=== PATIENT | female | born 1975 | race Caucasian/White ===

== ENCOUNTER → 2016-08-28 | Outpatient (CLI) | payer BC ==
[~2016-08-28] MED LIST: AMLO5TAB2 PO; BUPIVACAINE 0.25% (2.5mg/ml) INJ 30ml SDV ONE; DOCU-168 PO; FLUO40CA40 PO; GADOBUTROL 10mMol/10ml INJECTION IV ONE; HYDR25TA PO; IOTHALAMATE MEGLUMINE 60% (600mg/ml) 30ml INJ IV ONE; LEVO25TA4 PO; LIDOCAINE 1% 30ml (STERI-PAK) ONE; NAPR500T3 PO; NORMAL SALINE 50 ML IV ONE; ONDA4TAB4 PO; OXYC-46 PO; SULF1TAB42 PO; TRIAMCINOLONE 40mg/ml INJECTION 1ml VIAL INJ ONE; [UNRECOGNIZED DRUG - CODE] PO
--- NOTE | 2016-08-28 11:09 | DI ---
INDICATION: ITS.REASON: BILATERAL KNEE PAIN; LABRAL REPAIR Procedure:INJECTION/DRN KNEE LT W/FLUORO LEFT KNEE INJECTION: After discussing the details of the procedure, including the risks, the patient wished to proceed. Informed consent was obtained. A preprocedural timeout was performed to confirm the correct patient and procedure. Utilizing sterile technique, local Xylocaine anesthesia, and fluoroscopic guidance a 22-gauge infiltrating needle is directed into the left knee. A small amount of x-ray contrast was injected to confirm proper position of the needle tip. A fluoroscopic image was then taken and archived. A combination of 4 cc 1% lidocaine, 4 cc 0.25% bupivacaine, and 80 mg Kenalog were slowly instilled within the joint of the left knee. The needle was removed. The patient tolerated the procedure well. Following this, the patient was prepped for the same procedure on the right knee. IMPRESSION: Technically successful intra-articular left knee injection for therapeutic purposes. Fluoroscopy dose: 2.83 mGy (Cumulative air kerma) Charles Powell RPA/PAT performed this under my personal supervision. .
--- NOTE | 2016-08-28 11:13 | DI ---
INDICATION: ITS.REASON: BILATERAL KNEE PAIN; LABRAL REPAIR Procedure:INJECTION/DRN KNEE RT W/FLUORO RIGHT KNEE INJECTION: After discussing the details of the procedure, including the risks, the patient wished to proceed. Informed consent was obtained. A preprocedural timeout was performed to confirm the correct patient and procedure. Utilizing sterile technique, local Xylocaine anesthesia, and fluoroscopic guidance a 22-gauge infiltrating needle is directed into the right knee. A small amount of x-ray contrast was injected to confirm proper position of the needle tip. A fluoroscopic image was then taken and archived. A combination of 4 cc 1% lidocaine, 4 cc 0.25% bupivacaine, and 80 mg Kenalog were slowly instilled within the joint of the right knee. The needle was removed. The patient tolerated the procedure well. Following this, the patient was prepped for her right hip arthrogram. IMPRESSION: Technically successful right intra-articular knee joint injection for therapeutic purposes. Fluoroscopy dose: 0.73 (Cumulative air kerma) Charles Powell RPA/PAT performed this under my personal supervision. .
--- NOTE | 2016-08-28 11:44 | DI ---
Indication: ITS.REASON: RIGHT HIP PAIN S/P RIGHT HIP DIAGNOSTIC ARTHROSCOPY AND SYNOVECTOMY PROCEDURE: MRI HIP RIGHT W/ CONTRAST: Encounter: Initial Comparison: None Technique: Multiplanar multisequence MR imaging of the right hip was performed after the administration of intra-articular contrast. The arthrogram injection is described in a separate procedural report. Findings: The hamstring origins appear normal. Bone marrow signal intensity is normal. No acute fracture. Ligamentum teres is intact. Contrast does not communicate with the iliopsoas bursa. Muscular signal intensity is normal. There is irregularity of the anterosuperior labrum at 2:00 best seen on sagittal images 10 and 11 and axial proton density image #19. No additional labral tears appreciated there is a small osseous excrescence on the anterior femoral head at the head neck junction best seen on sagittal image #13 and axial oblique image #15. No fluid in the greater trochanteric bursa. There is some slight increased T2 signal intensity at the greater trochanteric insertions of the gluteus medius and minimus. Impression: 1. Subtle evidence for a small labral tear at the 2:00 position. 2. 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 3. 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 .
--- NOTE | 2016-08-28 11:59 | DI ---
INDICATION: ITS.REASON: RIGHT HIP PAIN S/P RIGHT HIP DIAGNOSTIC ARTHROSCOPY AND SYNOVECTOMY ARTHROGRAM HIP RT W/FLUORO: HIP INJECTION FOR MRI ARTHROGRAM: The procedure including the benefits, risks, and alternatives were explained in detail to the patient. All of their questions were answered. They stated that they understood and wished to proceed. Informed consent was obtained. A pre-procedural timeout was done to verify the patient and proper procedure. Using sterile technique, local Xylocaine anesthesia, and fluoroscopic guidance, a 22-gauge spinal needle was advanced into the right hip. A small amount of x-ray contrast was injected to confirm proper intra-articular position of the needle tip. A fluoroscopic image was then taken and archived. A combination of 5 cc of dilute gadolinium, 1 cc 1% lidocaine, 1 cc 0.25% bupivacaine, and 40 mg Kenalog were slowly instilled within the joint of the right hip. The needle was then removed. The procedure was completed without complication. Following this, the patient was taken to MRI via wheelchair for her scan. Please see the separate MRI report. Impression: Technically successful right intra-articular hip joint injection for a MRI arthrogram. Fluoroscopy dose: 17.60 mGy (Cumulative air kerma) Charles Powell RPA/PAT performed this under my personal supervision .
== END ==
LOC: IMA 08:07
PROVIDERS: ATTEND Orthopaedic Surgery Sports Medicine
DX: M25.561 Pain in right knee (principal); M25.562 Pain in left knee; M25.551 Pain in right hip
CPT/HCPCS: 27093